=== PATIENT | male | born 1935 ===

== ENCOUNTER → 2017-06-14 | Outpatient (CLI) | payer MEDICARE, BC ==
[2017-06-14 17:57] LABS: BASOPHILS # (AUTO) 0.1 10^3/uL (0.0-0.1); BASOPHILS % (AUTO) 1 % (0-10); EOSINOPHILS # (AUTO) 0.2 10^3/uL (0.0-0.3); EOSINOPHILS % (AUTO) 3 % (0-10); HEMATOCRIT 38 % (40-54); HEMOGLOBIN 12.6 G/DL (13.3-17.7); LYMPHOCYTES # (AUTO) 1.1 X 10^3 (1.0-4.0); LYMPHOCYTES % (AUTO) 14 % (12-44); MEAN CORPUSCULAR HEMOGLOBIN 31 PG (25-34); MEAN CORPUSCULAR HGB CONC 33 G/DL (32-36); MEAN CORPUSCULAR VOLUME 93 FL (80-99); MEAN PLATELET VOLUME 12.7 FL (7.4-10.4); MONOCYTES # (AUTO) 0.8 X 10^3 (0.0-1.0); MONOCYTES % (AUTO) 11 % (0-12); NEUTROPHILS # (AUTO) 5.4 X 10^3 (1.8-7.8); NEUTROPHILS % (AUTO) 71 % (42-75); PLATELET COUNT 159 10^3/uL (130-400); RED BLOOD COUNT 4.13 10^6/uL (4.35-5.85); RED CELL DISTRIBUTION WIDTH 15.9 % (10.0-14.5); WHITE BLOOD COUNT 7.6 10^3/uL (4.3-11.0)
[2017-06-14 18:16] LABS: CALCIUM 8.6 MG/DL (8.5-10.1); CREATININE SERUM 1.52 MG/DL (0.60-1.30); POTASSIUM 4.6 MMOL/L (3.6-5.0)
[2017-06-14 18:17] LABS: ERYTHROCYTE SEDIMENTATION RATE 23 MM/HR (0-30)
== END ==
LOC: LABNPT 17:50
PROVIDERS: ATTEND Specialist
DX: M86.171 Other acute osteomyelitis, right ankle and foot (principal)
CPT/HCPCS: 80048; 85025; 85652; 86141